=== PATIENT | female | born 1935 | race Caucasian/White ===

== ENCOUNTER → 2017-08-18 | Outpatient (CLI) | payer OTHER ==
[~2017-08-18] MED LIST: AEC81 PO; APIX5TAB PO; DIPHENHYDRAMINE PO; FURO40TA5 PO; IBUP-2353 PO; LEVO112T7 PO; LOSA50TA37 PO; MELA5TAB14 PO; METO100T7 PO; METO50TA18 PO; METO50TA9 PO; PANT40TA25 PO; PRAV40TA3 PO; SPIR25TA PO; TERA10CA4 PO; TICA90TA PO
== END | disposition home or self-care (01) ==
LOC: SHCH 15:43
PROVIDERS: ATTEND Internal Medicine Cardiovascular Disease
DX: I34.0 Nonrheumatic mitral (valve) insufficiency (principal); I48.1 Persistent atrial fibrillation
CPT/HCPCS: 93306

== ENCOUNTER → 2017-08-21 | Outpatient (CLI) | payer OTHER ==
[~2017-08-21] MED LIST changes: +REGADENOSON 0.4 MG/5 ML PF SYG IVP SCH
== END | disposition home or self-care (01) ==
LOC: SHCH 08:02
PROVIDERS: ATTEND Internal Medicine Cardiovascular Disease
DX: I48.1 Persistent atrial fibrillation (principal)
CPT/HCPCS: 78452; 93017; 96374; A9500 ×2; J2785

== ENCOUNTER → 2017-09-02 | Outpatient (CLI) | payer OTHER ==
[~2017-09-02] MED LIST changes: -REGADENOSON 0.4 MG/5 ML PF SYG IVP SCH
== END | disposition home or self-care (01) ==
LOC: SHCH 14:46
PROVIDERS: ATTEND Internal Medicine Cardiovascular Disease
DX: I65.23 Occlusion and stenosis of bilateral carotid arteries (principal)
CPT/HCPCS: 93880

== ENCOUNTER 2017-10-05 05:47 | Observation (INO) | payer OTHER ==
[2017-10-02 14:20] VITALS: BP 117/73
[2017-10-02 14:57] LABS: BASOPHILS % (AUTO) 0.9 % (0.0-5.0); EOSINOPHILS % (AUTO) 3.3 % (0.0-8.0); HEMATOCRIT 41.6 % (36-48); LYMPHOCYTES % (AUTO) 20.9 % (21.0-51.0); MEAN CORPUSCULAR HEMOGLOBIN 31.3 pg (27.0-33.0); MEAN CORPUSCULAR HGB CONC 34.2 g/dL (32.0-36.0); MEAN CORPUSCULAR VOLUME 91.7 fL (79-99); NEUTROPHILS % (AUTO) 66.9 % (40.0-77.0); PLATELET COUNT (AUTO) 174 K/uL (130-400); RED BLOOD CELL COUNT(AUTO) 4.53 MIL/uL (4.00-5.50); RED CELL DISTRIBUTION WIDTH 14.2 % (11.0-15.5)
[2017-10-02 15:10] LABS: CREATININE 1.1 mg/dL (0.5-1.5); POTASSIUM 4.2 mmol/L (3.5-5.1)
[2017-10-02 15:13] LABS: INR 0.9 (0.85-1.15); PARTIAL THROMBOPLASTIN TIME 25.3 SEC (26.3-35.5); PROTHROMBIN TIME 9.5 SEC (9.6-11.6)
[2017-10-02 15:35] LABS: APPEARANCE,URINE Clear (CLEAR); BILIRUBIN,URINE Negative (NEGATIVE); COLOR,URINE Yellow (YELLOW); GLUCOSE, URINE (UA) Negative (NEGATIVE); KETONES,URINE Negative (NEGATIVE); LEUKOCYTE ESTERASE ,URINE Small (NEGATIVE); NITRATE,URINE Negative (NEGATIVE); OCCULT BLOOD,URINE Negative (NEGATIVE); PROTEIN,URINE Negative (NEGATIVE); UROBILINOGEN,URINE 0.2 mg/dL (0.2-1.0)
[2017-10-02 15:51] LABS: BACTERIA,URINE Rare /HPF (None Seen); RBC,URINE None Seen /HPF (0-1); SQUAMOUS EPITHELIAL CELL,UR 0-2 /HPF (0-2); WBC,URINE 0-1 /HPF (0-1)
[~2017-10-05] VITALS: Ht 167.6 cm; Wt 79.9 kg
[2017-10-05] VITALS (30 sets, daily range): BP systolic 78–139; BP diastolic 49–93
[~2017-10-05 05:47] MED LIST changes: +ACETAMINOPHEN 325 MG TAB PO PRN; -APIX5TAB PO; -METO100T7 PO; -METO50TA9 PO; -PANT40TA25 PO; +SODIUM CHLORIDE 0.9% 500ML 500 ML IV SCH; -TICA90TA PO
[2017-10-05] MEDS ORDERED: SODIUM CHLORIDE 0.9% 1000ML 1,000 ML IV ONE (06:33)
[2017-10-05] MEDS ORDERED: SODIUM BICARB 50MEQ 50ML VIAL ONE (07:21)
[2017-10-05] MEDS ORDERED: LIDOCAINE HCL-MPF 2% 5ML VIAL ONE (07:22)
[2017-10-05] MEDS ORDERED: IOHEXOL-350 50ML VIAL IV ONE ×2 (07:22→08:06)
[2017-10-05] MEDS ORDERED: IOHEXOL 350 MG/ML 100ML INFUS..BTL IV ONE (07:22)
[2017-10-05] MEDS ORDERED: HEPARIN SODIUM 1000UNIT/ML 10ML VIAL ONE (07:32)
[2017-10-05] MEDS ORDERED: NITROGLYCERIN 5 MG/ML 10 ML VIAL IV ONE (07:32)
[2017-10-05] MEDS ORDERED: MIDAZOLAM HCL 1 MG/ML 2ML VIAL ONE (07:39)
[2017-10-05] MEDS ORDERED: MEPERIDINE-PF 25 MG/ML SYG ONE (07:39)
[2017-10-05] MEDS ORDERED: TICAGRELOR 90 MG TABLET ONE (08:21)
[2017-10-05] MEDS ORDERED: TEMAZEPAM 30 MG CAP PO PRN (08:45)
[2017-10-05] MEDS ORDERED: ONDANSETRON HCL 4 MG/2 ML VIAL IVP PRN (08:45)
[2017-10-05] MEDS ORDERED: ACETAMINOPHEN-CODEINE 300/30MG TAB PO PRN ×2 (08:45)
[2017-10-05] MEDS ORDERED: TICA90TA PO (08:48)
[2017-10-05] MEDS ORDERED: PANT40TA25 PO (08:50)
[2017-10-05] MEDS: PANTOPRAZOLE SODIUM 40 MG TABLET.DR PO SCH (08:58)
[2017-10-05] MEDS: LEVOTHYROXINE 112 MCG TABLET PO SCH (08:58)
[2017-10-05] MEDS: ASPIRIN 81 MG EC TAB PO SCH (09:00)
[2017-10-05] MEDS ORDERED: ASPIRIN 81MG TAB.CHEW PO SCH (09:00)
[2017-10-05] MEDS: FUROSEMIDE 40 MG TABLET PO SCH (09:00)
[2017-10-05] MEDS: LOSARTAN 50 MG TABLET PO SCH (09:00)
[2017-10-05] MEDS: SPIRONOLACTONE 25 MG TAB PO SCH ×2 (09:00→22:05)
[2017-10-05] MEDS: DIPHENHYDRAMINE HCL 25 MG CAPSULE PO SCH ×2 (21:00→22:05)
[2017-10-05] MEDS ORDERED: ATORVASTATIN CALCIUM 20 MG TABLET PO SCH (21:00)
[2017-10-05] MEDS ORDERED: MELATONIN 5 MG PO SCH (21:00)
[2017-10-05] MEDS: TICAGRELOR 90 MG TABLET PO SCH (21:00)
[2017-10-05] MEDS ORDERED: TERAZOSIN HCL 5 MG CAPSULE PO SCH (21:00)
[2017-10-05] MEDS: METOPROLOL TARTRATE 50 MG TAB PO SCH (22:06)
[2017-10-06 03:50] VITALS: BP 119/71
[2017-10-06 04:19] LABS: MEAN CORPUSCULAR HEMOGLOBIN 31.2 pg (27.0-33.0); MEAN CORPUSCULAR HGB CONC 34.3 g/dL (32.0-36.0); MEAN CORPUSCULAR VOLUME 90.9 fL (79-99); PLATELET COUNT (AUTO) 164 K/uL (130-400); RED BLOOD CELL COUNT(AUTO) 4.29 MIL/uL (4.00-5.50); RED CELL DISTRIBUTION WIDTH 14.3 % (11.0-15.5); WHITE BLOOD COUNT (AUTO) 8.2 K/uL (4.8-10.8)
[2017-10-06 04:36] LABS: CREATININE 0.9 mg/dL (0.5-1.5); POTASSIUM 3.6 mmol/L (3.5-5.1)
[2017-10-06] MEDS: LEVOTHYROXINE 112 MCG TABLET PO SCH (06:10)
[2017-10-06] MEDS: PANTOPRAZOLE SODIUM 40 MG TABLET.DR PO SCH (06:10)
[2017-10-06 07:00] VITALS: BP 124/57
[2017-10-06] MEDS: LOSARTAN 50 MG TABLET PO SCH (08:25)
[2017-10-06] MEDS: ASPIRIN 81 MG EC TAB PO SCH (08:25)
[2017-10-06] MEDS: SPIRONOLACTONE 25 MG TAB PO SCH (08:25)
[2017-10-06] MEDS: TICAGRELOR 90 MG TABLET PO SCH (08:25)
[2017-10-06] MEDS: FUROSEMIDE 40 MG TABLET PO SCH (08:25)
[2017-10-06] MEDS: METOPROLOL TARTRATE 50 MG TAB PO SCH (08:25)
[2017-10-06] MEDS ORDERED: POTASSIUM CHLORIDE 10% ELIXIR 20 MEQ/15 ML UDCUP PO PRN (08:45)
[2017-10-06] MEDS ORDERED: METO50TA9 PO (09:24)
[2017-10-06] MEDS ORDERED: APIX5TAB PO (09:24)
[2017-10-06] MEDS ORDERED: METO100T7 PO (09:24)
[2017-10-06 11:02] VITALS: BP 123/68
[2017-10-06] MEDS: POTASSIUM CHLORIDE 20 MEQ ERTAB PO PRN ×2 (11:04→13:49)
== END 2017-10-06 13:50 | disposition home or self-care (01) ==
LOC: DAH 05:47 → DAHIP 05:48 → UNDOADMOB 09:10 → DAHIP 09:10 → 2DH 15:02
PROVIDERS: ADMIT Internal Medicine Cardiovascular Disease; ATTEND Internal Medicine Cardiovascular Disease
DX: I25.119 Atherosclerotic heart disease of native coronary artery with unspecified angina pectoris (principal); I25.5 Ischemic cardiomyopathy; I11.0 Hypertensive heart disease with heart failure; I50.42 Chronic combined systolic (congestive) and diastolic (congestive) heart failure; I48.91 Unspecified atrial fibrillation; E03.9 Hypothyroidism, unspecified; E78.5 Hyperlipidemia, unspecified; E66.9 Obesity, unspecified; M53.87 Other specified dorsopathies, lumbosacral region; I34.0 Nonrheumatic mitral (valve) insufficiency; Q25.0 Patent ductus arteriosus; Z79.899 Other long term (current) drug therapy; Z86.73 Personal history of transient ischemic attack (TIA), and cerebral infarction without residual deficits; Z79.82 Long term (current) use of aspirin
CPT/HCPCS: 36415 ×3; 71045; 80048 ×2; 80061; 81001; 85025; 85027; 85347 ×2; 85610; 85730; 93005 ×2; 93458; A4606; C1725; C1760; C1769; C1874 ×2; C1887; C1894; C9600 ×2; G0378 ×32; J1644 ×2; J2175; J2250; J3490 ×3; J7030; Q0163; Q9965; Q9967 ×3; 99156; 99157; C9601

== ENCOUNTER → 2017-12-21 | Outpatient (CLI) | payer OTHER ==
[~2017-12-21] MED LIST changes: -ACETAMINOPHEN 325 MG TAB PO PRN; +APIX5TAB PO; -IBUP-2353 PO; +LOSA50TA25 PO; -LOSA50TA37 PO; +METO100T7 PO; -METO50TA18 PO; +METO50TA9 PO; +PANT40TA25 PO; -SODIUM CHLORIDE 0.9% 500ML 500 ML IV SCH; +TICA90TA PO
== END | disposition home or self-care (01) ==
LOC: SHCH 12:32
PROVIDERS: ATTEND Internal Medicine Cardiovascular Disease
DX: I25.10 Atherosclerotic heart disease of native coronary artery without angina pectoris (principal); I35.8 Other nonrheumatic aortic valve disorders; I25.5 Ischemic cardiomyopathy; I48.1 Persistent atrial fibrillation; I11.0 Hypertensive heart disease with heart failure; I50.42 Chronic combined systolic (congestive) and diastolic (congestive) heart failure; E78.5 Hyperlipidemia, unspecified; E03.9 Hypothyroidism, unspecified; Z87.891 Personal history of nicotine dependence; Z90.710 Acquired absence of both cervix and uterus
CPT/HCPCS: 93306

== ENCOUNTER 2018-01-20 11:43 | Observation (INO) | payer OTHER ==
[2018-01-18 14:33] VITALS: BP 107/64
[2018-01-18 14:40] LABS: EOSINOPHILS % (AUTO) 2.8 % (0.0-8.0); HEMATOCRIT 32.8 % (36-48); LYMPHOCYTES % (AUTO) 14.9 % (21.0-51.0); MEAN CORPUSCULAR HEMOGLOBIN 32.9 pg (27.0-33.0); MEAN CORPUSCULAR HGB CONC 34.1 g/dL (32.0-36.0); MEAN CORPUSCULAR VOLUME 96.7 fL (79-99); MONOCYTES % (AUTO) 7.5 % (3.0-13.0); NEUTROPHILS % (AUTO) 73.8 % (40.0-77.0); NUCLEATED RED BLOOD CELLS 0.1 % (0.0-0.19); PLATELET COUNT (AUTO) 196 K/uL (130-400); RED BLOOD CELL COUNT(AUTO) 3.39 MIL/uL (4.00-5.50); RED CELL DISTRIBUTION WIDTH 13.8 % (11.0-15.5); WHITE BLOOD COUNT (AUTO) 5.4 K/uL (4.8-10.8)
[2018-01-18 14:48] LABS: CREATININE 1.6 mg/dL (0.5-1.5); POTASSIUM 4.3 mmol/L (3.5-5.1)
[2018-01-18 14:51] LABS: INR 0.98 (0.85-1.15); PARTIAL THROMBOPLASTIN TIME 32.7 SEC (26.3-35.5); PROTHROMBIN TIME 10.3 SEC (9.6-11.6)
[2018-01-19] MEDS: CEFAZOLIN SODIUM 1 GM VIAL IVP SCH (11:15)
[~2018-01-20] VITALS: Ht 167.6 cm; Wt 80.4 kg
[2018-01-20] VITALS (8 sets, daily range): BP systolic 82–118; BP diastolic 53–69
[2018-01-20] MEDS: CEFAZOLIN SODIUM 1 GM VIAL IVP SCH (11:15)
[~2018-01-20 11:43] MED LIST changes: -AEC81 PO; -MELA5TAB14 PO; -PANT40TA25 PO
[2018-01-20] MEDS ORDERED: SODIUM CHLORIDE 0.9% 1000ML 1,000 ML IV ONE (11:49)
[2018-01-20] MEDS ORDERED: LIDOCAINE HCL 1% MDV 50ML VIAL ONE (17:05)
[2018-01-20] MEDS ORDERED: BUPIVACAINE/PF 0.25% 50ML VIAL IJ ONE (17:06)
[2018-01-20] MEDS ORDERED: CEFAZOLIN SODIUM 1 GM VIAL ONE ×2 (17:06→17:28)
[2018-01-20] MEDS ORDERED: MIDAZOLAM HCL 1 MG/ML 2ML VIAL ONE (17:14)
[2018-01-20] MEDS ORDERED: MEPERIDINE-PF 25 MG/ML SYG ONE (17:14)
[2018-01-20] MEDS ORDERED: OCTYL 2-CYANOACRYLATE 1 EACH TP ONE (17:59)
[2018-01-20] MEDS ORDERED: ONDANSETRON HCL 4 MG/2 ML VIAL IV PRN (18:45)
[2018-01-20] MEDS ORDERED: ACETAMINOPHEN-CODEINE 300/30MG TAB PO PRN ×2 (18:45)
[2018-01-20] MEDS ORDERED: DIPHENHYDRAMINE HCL 25 MG CAPSULE PO SCH (21:00)
[2018-01-20] MEDS ORDERED: Pravastatin Sodium 40 MG PO SCH (21:00)
[2018-01-20] MEDS: SPIRONOLACTONE 25 MG TAB PO SCH (21:06)
[2018-01-20] MEDS: TICAGRELOR 90 MG TABLET PO SCH (21:06)
[2018-01-21 03:00] VITALS: BP 102/64
[2018-01-21] MEDS ORDERED: CEFAZOLIN SODIUM 1 GM VIAL IVP ONE (06:00)
[2018-01-21] MEDS ORDERED: LEVOTHYROXINE 112 MCG TABLET PO SCH (06:30)
[2018-01-21 07:44] VITALS: BP 96/61
[2018-01-21] MEDS ORDERED: LOSARTAN 50 MG TABLET PO SCH (09:00)
[2018-01-21] MEDS ORDERED: FUROSEMIDE 40 MG TABLET PO SCH (09:00)
[2018-01-21] MEDS: SPIRONOLACTONE 25 MG TAB PO SCH (10:04)
[2018-01-21] MEDS: TICAGRELOR 90 MG TABLET PO SCH (10:04)
[2018-01-21] MEDS: CEFAZOLIN SODIUM 1 GM VIAL IVP SCH (10:07)
[2018-01-21 11:43] VITALS: BP 99/58
[2018-01-21] MEDS ORDERED: APIXABAN 5 MG TABLET PO SCH (21:00)
== END 2018-01-21 12:28 | disposition home or self-care (01) ==
LOC: DAH 11:43 → DAHIP 11:44 → 2AH 19:12
PROVIDERS: ADMIT Internal Medicine; ATTEND Internal Medicine Cardiovascular Disease
DX: I48.2 Chronic atrial fibrillation (principal); I25.5 Ischemic cardiomyopathy; I25.10 Atherosclerotic heart disease of native coronary artery without angina pectoris; I11.0 Hypertensive heart disease with heart failure; I50.42 Chronic combined systolic (congestive) and diastolic (congestive) heart failure; E78.5 Hyperlipidemia, unspecified; E03.9 Hypothyroidism, unspecified; E66.9 Obesity, unspecified; Z86.73 Personal history of transient ischemic attack (TIA), and cerebral infarction without residual deficits; Z96.652 Presence of left artificial knee joint; Z82.49 Family history of ischemic heart disease and other diseases of the circulatory system; Z95.5 Presence of coronary angioplasty implant and graft; Z79.01 Long term (current) use of anticoagulants
CPT/HCPCS: 33249; 36415; 71046; 80048; 85025; 85610; 85730; 93005; 96374; A4606; C1722; C1894; C1895; G0378 ×25; J0690 ×3; J2175; J2250; J3490 ×2; J7030; Q0163; 99156; 99157

== ENCOUNTER → 2019-09-14 | Outpatient (CLI) | payer OTHER | END | disposition home or self-care (01) | LOC: SHCH 12:29 | PROVIDERS: ATTEND Internal Medicine Cardiovascular Disease | DX: I65.23 Occlusion and stenosis of bilateral carotid arteries (principal); I08.0 Rheumatic disorders of both mitral and aortic valves; I25.10 Atherosclerotic heart disease of native coronary artery without angina pectoris; R01.1 Cardiac murmur, unspecified ==

== ENCOUNTER → 2022-10-20 | Outpatient (CLI) | payer OTHER ==
[~2022-10-20] MED LIST changes: +AMLO2.5T4 PO; -DIPHENHYDRAMINE PO; +FURO20TA4 PO; -FURO40TA5 PO; -LEVO112T7 PO; +LEVO88CA4 PO; +LOSA100T59 PO; -LOSA50TA25 PO; +METO-409 PO; -METO100T7 PO; -METO50TA9 PO; +REGADENOSON 0.4 MG/5 ML PF SYG IVP ONE; -SPIR25TA PO; -TERA10CA4 PO; -TICA90TA PO
== END | disposition home or self-care (01) ==
LOC: SHCH 08:04
PROVIDERS: ATTEND Internal Medicine Cardiovascular Disease
DX: I25.10 Atherosclerotic heart disease of native coronary artery without angina pectoris (principal)
CPT/HCPCS: 78452; 96374; 93017; J2785; A9500 ×2

== ENCOUNTER → 2023-08-31 | Outpatient (CLI) | payer OTHER ==
[~2023-08-31] MED LIST changes: -REGADENOSON 0.4 MG/5 ML PF SYG IVP ONE
== END | disposition home or self-care (01) ==
LOC: RAH 13:07
PROVIDERS: ATTEND Internal Medicine Cardiovascular Disease
DX: I08.3 Combined rheumatic disorders of mitral, aortic and tricuspid valves (principal); E78.5 Hyperlipidemia, unspecified
CPT/HCPCS: 93306

== ENCOUNTER → 2024-06-27 | Outpatient (CLI) | payer OTHER ==
--- NOTE | 2024-06-29 09:24 | HMCSR ---
APPROVED REPORT EXAM: Two-dimensional and M-mode echocardiogram with Doppler and color Doppler. INDICATION ICD: R06.02 Shortness of breath 2D Dimensions RVDd3.1 cmLVEF(%)47.0 (>50%)LVED Vol(simp.)59.3 mL IVSd0.9 (0.7-1.1cm)FS(%)23 %LVES Vol(simp.)25.2 mL LVDd4.4 (3.8-5.6cm)LA (2D)3.8 (1.6-4.0cm)LVEF(%, simp.)57 % PWd0.9 (0.7-1.1cm)Ao Root(2D)3.2 (2.0-3.7cm) LVDs3.4 (2.5-4.0cm)LVOT diam2.1 (1.8-2.4cm) IVC diam2.0 cm M-Mode Dimensions EPSS1.8 cm Aortic Valve AoV Vmax1.5 m/Lani Peak GR8.6 mmHgLVOT Vmax1.2 m/s AoV VTI0.3 mAo Mean GR4.4 mmHgLVOT VTI0.22 m HIRAM (VMAX)3.0 cm2AVA (VTI) 3.0 cm2 Mitral Valve MV E Vmax85.6 cm/sDECEL Vamn539 ms MV A Vmax22.5 cm/sP 1/2 T70 ms E/A ratio3.8MVA (PHT)3.1 cm2 TDI E/E' Dlxrxq92.2E/E' Lateral8.6 Medial E' Peak V7.00 cm/sLateral E' Peak V10.00 cm/s Tricuspid Valve TR Vmax2.8 m/sRVSP31.8 mmHg TR Peak GR31.8 mmHg Left Ventricle The left ventricle is normal size. There is normal left ventricular wall thickness. LVEF is 45%. No l eft ventricle thrombus noted on this study. Right Ventricle The right ventricle is normal size. Right ventricular systolic function is moderately reduced. Atria The left atrium is severely dilated. The right atrium is moderately dilated. Aortic Valve Aortic valve is trileaflet. Non coronary cusp leaflet is mildly thickened with decreased excursion. N o aortic regurgitation is present. There is no aortic valvular stenosis. Mitral Valve The mitral valve is normal in structure. There is no mitral valve regurgitation noted. There is no mi tral valve stenosis. Tricuspid Valve The tricuspid valve is normal in structure. There is trace tricuspid valve regurgitation noted. Pulmonic Valve There is no pulmonic valvular regurgitation. Great Vessels The aortic root is normal in size. The IVC is normal in size and collapses <50% with inspiration. Pericardium There is no pericardial effusion. There is moderate left pleural effusion. Other Information Quality : Adequate Conclusion The left ventricle is normal size. LVEF is 45%. Right ventricular systolic function is moderately reduced. The left atrium is severely dilated. The right atrium is moderately dilated. Aortic valve is trileaflet. Non coronary cusp leaflet is mildly thickened with decreased excursion. No aortic regurgitation is present. There is no aortic valvular stenosis. The mitral valve is normal in structure. There is no mitral valve regurgitation noted. There is no mitral valve stenosis. There is trace tricuspid valve regurgitation noted. There is no pulmonic valvular regurgitation. The aortic root is normal in size. The IVC is normal in size and collapses <50% with inspiration. There is no pericardial effusion. There is moderate left pleural effusion.
== END | disposition home or self-care (01) ==
LOC: RAH 13:56
PROVIDERS: ATTEND Internal Medicine Cardiovascular Disease
DX: I35.8 Other nonrheumatic aortic valve disorders (principal); I51.7 Cardiomegaly; R06.02 Shortness of breath; J90 Pleural effusion, not elsewhere classified
CPT/HCPCS: 93306

== ENCOUNTER → 2024-06-28 | Outpatient (CLI) | payer OTHER ==
[2024-06-28] MEDS: REGADENOSON 0.4 MG/5 ML PF SYG IVP ONE (13:21)
--- NOTE | 2024-06-29 09:26 | HMCSR ---
APPROVED REPORT Height: 5 ft 6in Weight: 162 lbs TEST INDICATIONS Dyspnea , CAD The imaging protocol used to acquire images was Rest Tc-99m/stress Tc-99m 1 day Consent: The procedure was explained and understood by the patient. Informerd consent was witnessed Daysi Pickens RN First, low dose rest was performed then high dose stress. RESTING DATA: The resting ekg shows: Atrial Fibrillation Rest SPECT myocardial perfusion imaging was performed in supine position 69 minutes following the int ravenous injection of 12.9 mCi of Tc-99 Sestamibi. Time of rest injection: 08:22: Date: 06/28/2024 Time of rest imagin:31: Date: 06/28/2024 PHARMACOLOGIC STRESS: Pharmacologic stress test was performed by injecting regadenoson 0.4 mg IV push followed by the intra venous injection of 33.1 mCi of Tc-99 Sestamibi. Time of stress injection: 09:59: Date: 06/28/2024 Time of stress imagin:55: Date: 06/28/2024 Heart Rate at time of stress injection: 82 bpm. Gated Stress SPECT was performed 56 minutes after stress injection. The images were gated to evaluate regional wall motion and calculate left ventricular ejection fracti on. STRESS DETAILS Reason for Termination: Infusion complete Stress Symptoms: Dyspnea Max HR Achieved: 99 bpm % of APMHR Achieved: 75 Max Blood Pressure: 138/80 mmHg Stress ECG: Atrial Fibrillation LEFT VENTRICLE Size: The left ventricular size is mildly dilated. Systolic Function:The left ventricular systolic function is mildly decreased. Wall Motion: Mild global hypokinesis. The left ventricular ejection fraction was calculated to be 51%.TID = . LV PERFUSION The rest and stress images show normal perfusion. Conclusion The left ventricular size is mildly dilated. The left ventricular systolic function is mildly decreased. Mild global hypokinesis. The rest and stress images show normal perfusion. The left ventricular ejection fraction was calculated to be 51%.
== END | disposition home or self-care (01) ==
LOC: SHCH 07:58
PROVIDERS: ATTEND Internal Medicine Cardiovascular Disease
DX: I25.10 Atherosclerotic heart disease of native coronary artery without angina pectoris (principal); R06.00 Dyspnea, unspecified; I51.7 Cardiomegaly; I48.91 Unspecified atrial fibrillation
CPT/HCPCS: 78452; 93017; J2785; A9500 ×2